=== PATIENT | male | born 1970 | race Two or more races ===

== ENCOUNTER 2017-09-28 16:02 | Emergency (ER) | payer SELFPAY ==
[~2017-09-28] VITALS: Ht 177.8 cm; Wt 106.2 kg
[2017-09-28 16:12] VITALS: BP 138/87
[2017-09-28] MEDS ORDERED: PROPARACAINE OPHTH 0.5%, 15ML ONE (16:40)
[2017-09-28] MEDS ORDERED: FLUORESCEIN OPHTHALMIC 1 MG STRIP EACHEYE ONE (18:00)
[2017-09-28] MEDS ORDERED: PROPARACAINE OPHTH 0.5%, 15ML EACHEYE ONE (18:00)
== END 2017-09-28 18:46 | disposition home or self-care (01) ==
LOC: ED 18:40
DX: H16.042 Marginal corneal ulcer, left eye (principal)
CPT/HCPCS: 99283

== ENCOUNTER 2019-04-27 20:30 | Emergency (ER) | payer SELFPAY ==
[~2019-04-27] VITALS: Ht 180.3 cm; Wt 98.8 kg
[2019-04-27 20:58] VITALS: BP 139/83
[2019-04-27] MEDS ORDERED: FLUORESCEIN OPHTHALMIC 1 MG STRIP ONE (22:07)
[2019-04-27] MEDS ORDERED: PROPARACAINE OPHTH 0.5%, 15ML ONE (22:07)
[2019-04-27] MEDS ORDERED: PROPARACAINE OPHTH 0.5%, 15ML EACHEYE ONE (22:30)
[2019-04-27] MEDS ORDERED: FLUORESCEIN OPHTHALMIC 1 MG STRIP EACHEYE ONE (22:30)
[2019-04-27] MEDS ORDERED: POLYTRIM OPHTH 10ML LEFTEYE STA (22:45)
[2019-04-27] MEDS ORDERED: ERYTHROMYCIN OPHTH 0.5%, 1GM LEFTEYE ONE (23:00)
== END 2019-04-28 02:00 | disposition home or self-care (01) ==
LOC: ED 04-28
DX: S05.02XA Injury of conjunctiva and corneal abrasion without foreign body, left eye, initial encounter (principal); H16.002 Unspecified corneal ulcer, left eye; X58.XXXA Exposure to other specified factors, initial encounter; Y93.89 Activity, other specified; Y92.89 Other specified places as the place of occurrence of the external cause; Y99.8 Other external cause status
CPT/HCPCS: 99283